=== PATIENT | male | born 1940 | race Caucasian/White ===

== ENCOUNTER 2017-12-19 06:52 | Observation (INO) | payer BC ==
[~2017-12-19] VITALS: Ht 190.5 cm; Wt 102.5 kg
--- NOTE | ~2017-12-19 | P ---
[facility] [place] [address] PROCEDURE REPORT Name: ALYSHA OLMEDO Room #: 218-P [facility] M.R.#: [id number] Admission: 12/19/17 Attend Phys: José Greenberg MD Discharge: Date of : 40 Report #: [id number] THIS REPORT FOR: //name// CC: ALCON MAHMOOD FAM unknown José Darling PREOPERATIVE DIAGNOSIS: Atrial flutter. 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 PROCEDURES PERFORMED: 1. SVT ablation, CPT code 98021. 2. EP with left atrial pacing and recording, CPT code 79777. 3. Intracardiac echo, CPT code 58180. 4. 3D mapping, CPT code 77148. 5. Mapping of the tachycardia, CPT code 10729. 6. Transseptal puncture, CPT code 62258. 7. Arterial line placement, CPT code 86038. INDICATIONS: The patient is a 77-year-old presenting with new onset atrial flutter, here for an ablation. ANESTHESIA: The patient underwent MAC anesthesia with no anesthesia related complications. PROCEDURE: The patient underwent informed consent where we discussed the details of the procedure including the risks, which include, but not limited to bleeding, vascular damage, cardiac perforation as well as stroke or OH. He understood these risks and is willing to proceed. The patient was brought to the EP laboratory in a fasting and sedated state, prepped and draped in a sterile fashion. Once sedated, I placed 3 short sheaths in the right femoral vein using the modified Seldinger technique, I placed two 7-Maltese short sheaths and an 8-Maltese short sheath. Next, under fluoroscopy, I placed a decapolar catheter into the coronary sinus and it became evident that the patient was in a left-sided atrial flutter. At baseline, the patient was in atrial flutter with a ventricular rate of 450 milliseconds and atrial rate of 300 milliseconds with a distal to proximal activation along the coronary sinus catheter. The QRS duration was 80 milliseconds and the QT interval was 300 milliseconds. I also placed a live wire halo catheter in the right atrium. We performed pacing maneuvers along the halo catheter in the right atrium as well as CS 9, 10 and CS 1, 2. All entrainment was then achieved and the PPI minus tachycardia cycle length was long from everywhere other than CS 1, 2 consistent with a left-sided mitral annular flutter. Given that it appeared we had a [facility] [address] [place] [address] PROCEDURE REPORT Name: ALYSHA OLMEDO Room #: 218-P [facility]..#: [id number] Admission: 12/19/17 Attend Phys: José Greenberg MD Discharge: Date of : 40 Report #: [id number] left-sided flutter, I decided to place a 4-Maltese short sheath in the left femoral artery for arterial monitoring of pressures and for monitoring of anticoagulation status. I then also placed a 9-Maltese short sheath in the left femoral vein and placed an ice catheter into the right atrium. Using a CARTO sound, we created a 3-D geometry of the left atrium and there was evidence of a left atrial appendage to left into right pulmonary veins. The patient was then systemically heparinized and a transseptal was then performed. I had to make three attempts to get transseptal as I was trying to get anterior along the septum in order to be able to ablate along the mitral annulus. I was then able to cross with the SL1 and Sabattus needle. I then placed a Lasso catheter into the left atrium and we created an activation map of the atrial flutter. I also performed entrainment from the 4 pulmonary veins. Entrainment from all the veins was very long at around 100 milliseconds in terms of the PPI minus tachycardia cycle length values. However, when I placed the Lasso on the mitral annulus at around 4 o'clock, the PPI minus tachycardia cycle length was 20-30 milliseconds. As such, I pulled the Lasso catheter out and I exchanged the SL1 sheath for an Agilis sheath to allow me for some better reach along the mitral annulus. Next, we started performing ablation at around 4 o'clock along the mitral annulus and I performed several drag lesions at this site and connected them to the left inferior pulmonary vein. There was no change in the tachycardia cycle length. I performed several additional ablation lines at the site and also performed some ablation at more of the 6 o'clock along the mitral annulus as well. There was still no change in the tachycardia cycle length. I then decided to attempt to ablate in the coronary sinus. Of note, the decapolar catheter would not sit in the coronary sinus very well, I had to reposition it 20 times during the case as it would easily flipped out of the CS. I therefore was able to advance my ablation catheter deep into the coronary sinus at around the 4 o'clock region and there were some sharp electrograms here. I performed several ablation lesions at the site where there were sharp atrial signals at 20 machado for approximately 20 seconds duration. There was still no termination of the tachycardia. I therefore went back into the left atrium with the ablation catheter and I mapped the mitral annulus at the exact site where I had done my chandler in the coronary sinus. I therefore was able to find some nice atrial signals with some far field ventricular signals as well and I performed ablation here and took my lesion set up to the left inferior pulmonary vein. There still was not termination, but now the tachycardia had slowed down significantly by about 80 milliseconds. I therefore looked for some additional electrograms and there were some sharp atrial signals right below the left inferior pulmonary vein. An ablation at this location resulted in termination of the atrial flutter. Pacing maneuvers were performed, suggested that there was a block across the mitral annulus. Post-ablation findings: Post-ablation, the patient was now in sinus rhythm. Atrial pacing was performed and AV block was noted at 380 milliseconds. AV cherelle ERP was noted 280 milliseconds at a [address] cycle length. We gave a double atrial extrastimuli at multiple basic drive cycle [facility] [address] [place] [address] PROCEDURE REPORT Name: ALYSHA OLMEDO Room #: 218-P [facility] M.R.#: [id number] Admission: 12/19/17 Attend Phys: José Greenberg MD Discharge: Date of : 40 Report #: [id number] lengths and could not re-induce the atrial flutter. I also performed burst pacing of the atrium all the way down to 220 milliseconds. Of note, I initially said that the atrial cycle length of the flutter was 300 milliseconds, in fact it was around 220 milliseconds and after we slowed it down, it was at around 290 milliseconds. Post-ablation, we could not re-induce the atrial flutter. The patient was in sinus rhythm with a sinus cycle length of 740 milliseconds, ND interval 200 milliseconds, QRS duration 80 milliseconds, QT interval 350 milliseconds. As such, all catheters and sheaths were pulled. Hemostasis was obtained after the patient received systemic protamine. I used intracardiac ultrasound to verify the absence of a pericardial effusion. CONCLUSIONS: 1. Successful ablation of a left-sided mitral annular flutter with evidence of block post-ablation. 2. Normal SA cherelle function. 3. Normal AV node function. 4. Normal His-Purkinje function. 5. No other inducible arrhythmias post-ablation. By: [id number] [id number] José Greenberg MD /nt
[2017-12-19 07:20] VITALS: BP 149/92
[2017-12-19 07:37] LABS: HEMATOCRIT 44.9 % (42.0-52.0); HEMOGLOBIN 15.2 gm/dL (14.0-18.0); MCHC 33.8 g/dL (28.0-37.0); MCV 100.6 fL (80.0-100.0); RBC 4.47 mil/uL (4.50-6.00); WBC 8.7 thou/uL (4.0-11.0)
[2017-12-19] MEDS ORDERED: BAYER CHEWABLE81 MG PO (07:39)
[2017-12-19] MEDS ORDERED: VITAMINC500 PO (07:39)
[2017-12-19] MEDS ORDERED: NEPHROCAPS SOFT1 CAP PO (07:40)
[2017-12-19] MEDS ORDERED: LIPITOR 20 MG T20 M1 PO (07:40)
[2017-12-19 07:41] LABS: APTT 25.9 Seconds (24.5-32.8); PROTIME 10.5 Seconds (9.3-11.4)
[2017-12-19] MEDS ORDERED: METFORMIN HCL500 MG PO (07:41)
[2017-12-19] MEDS ORDERED: VITAMIN D2000 UNIT PO (07:41)
[2017-12-19] MEDS ORDERED: TOPROL XL25 MG PO (07:42)
[2017-12-19 07:43] LABS: CALCIUM 8.7 mg/dL (8.5-10.1); POTASSIUM 4.3 mmol/L (3.5-5.1)
[2017-12-19] MEDS ORDERED: OMEGA-31000 M1 PO (07:43)
[2017-12-19] MEDS ORDERED: NITROGLYCERIN0.4 MG SUBLING (07:43)
[2017-12-19] MEDS ORDERED: XARELTO20 MG PO (07:43)
[2017-12-19] MEDS ORDERED: MICARDIS 80 MG80 MG PO (07:44)
[2017-12-19] MEDS ORDERED: THERA-M1 EAC1 PO (07:45)
[2017-12-19 08:34] LABS: ABSOLUTE NEUTROPHILS 2.2 thou/uL (1.4-8.2); ATYPICAL LYMPHS 8 %; LARGE PLATELETS FEW; PLATELET COUNT 140 thou/uL (150-400); PLATELET ESTIMATE NORMAL
[2017-12-19 15:15] VITALS: BP 133/66
[2017-12-19 19:58] VITALS: BP 124/72
[2017-12-19 23:08] LABS: HBsAG-EMPLOYEE EXPOSURE Negative (Negative); HCV AB-EMPLOYEE EXPOSURE <0.1 (0.0-0.9)
[2017-12-20 00:05] VITALS: BP 126/66
[2017-12-20 04:50] VITALS: BP 136/74
[2017-12-20 07:55] VITALS: BP 149/91
[2017-12-20 11:45] VITALS: BP 132/67
[2017-12-20 13:17] VITALS: BP 132/67
== END 2017-12-20 13:48 | disposition home or self-care (01) ==
LOC: CATH 06:52 → 2N 15:33 → ENTRNSPT 12-20 13:25 → EDTRNSPTSTS 12-20 13:40 → 2N 12-20 13:48
PROVIDERS: Internal Medicine Cardiovascular Disease
DX: I48.3 Typical atrial flutter (principal); I25.10 Atherosclerotic heart disease of native coronary artery without angina pectoris; I25.2 Old myocardial infarction; I10 Essential (primary) hypertension; E78.5 Hyperlipidemia, unspecified; Z95.5 Presence of coronary angioplasty implant and graft; Z90.49 Acquired absence of other specified parts of digestive tract; Z72.89 Other problems related to lifestyle
CPT/HCPCS: 62110; 62900; 70005

== ENCOUNTER → 2017-12-27 | Outpatient (CLI) | payer BC ==
[~2017-12-27] VITALS: Ht 190.5 cm; Wt 101.2 kg
[~2017-12-27] MED LIST: BAYER CHEWABLE81 MG PO; LIPITOR 20 MG T20 M1 PO; METFORMIN HCL500 MG PO; MICARDIS 80 MG80 MG PO; MULTAQ400 MG PO; NEPHROCAPS SOFT1 CAP PO; NITROGLYCERIN0.4 MG SUBLING; OMEGA-31000 M1 PO; THERA-M1 EAC1 PO; TOPROL XL25 MG PO; VITAMIN D2000 UNIT PO; VITAMINC500 PO; XARELTO20 MG PO
--- NOTE | ~2017-12-27 | EKG ---
[address] [place] [address] ELECTROCARDIOGRAM REPORT Name: ALYSHA OLMEDO Room #: REG CLI [facility]#: [id number] Admission: 12/27/17 Attend Phys: José Greenberg MD Discharge: Date of : 40 Report #: [id number] THIS REPORT FOR: //name// [facility] Test Date: 2017-12-27 Test Time: 09:14:07 Pat Name: ALYSHA OLMEDO Department: Room: Gender: [employer] Supervisor: Lawrence RAZO : 1940 Requested By: José Greenberg Order Number: [id number] MD: Vladimir Rashid Measurements Intervals Rew Rate: 71 P: 39 MT: 195 QRS: 47 QRSD: 88 T: -42 QT: 416 QTc: 453 Interpretive Statements Sinus rhythm Nonspecific T abnormalities No previous ECG available for comparison Electronically Signed On 12-27-2017 17:07:29 CDT by Vladimir Rashid [email or web address] <ELECTRONICALLY SIGNED> By: Vladimir Rashid MD, [facility] 12/27/17 1707 0914 3 Vladimir Rashid MD, FACC /EPI
--- NOTE | ~2017-12-27 | P ---
[facility] [place] [address] PROCEDURE REPORT Name: ALYSHA OLMEDO Room #: REG CLI Anh.#: [id number] Admission: 12/27/17 Attend Phys: José Greenberg MD Discharge: Date of : 40 Report #: [id number] THIS REPORT FOR: //name// CC: Long Greenberg DATE OF SERVICE: 01/05/2018 PREOPERATIVE DIAGNOSIS: Atrial fibrillation. POSTOPERATIVE DIAGNOSIS: Atrial fibrillation. PROCEDURE: Cardioversion. DESCRIPTION OF PROCEDURE: The patient underwent informed consent. The patient was then sedated by the anesthesiology service. The patient then underwent synchronized 200 joule cardioversion with nondenominational of sinus rhythm. There were no complications. CONCLUSIONS: Successful direct current cardioversion with nondenominational of sinus rhythm. By: [id number] 2032 José Greenberg MD /nt
[2017-12-27 07:30] LABS: HEMATOCRIT 43.8 % (42.0-52.0); HEMOGLOBIN 15.2 gm/dL (14.0-18.0); MCH 34.6 pg (26.0-34.0); MCHC 34.7 g/dL (28.0-37.0); MCV 99.8 fL (80.0-100.0); RBC 4.39 mil/uL (4.50-6.00); RDW 13.1 % (10.5-14.5); WBC 12.2 thou/uL (4.0-11.0)
[2017-12-27 07:39] LABS: CALCIUM 9.8 mg/dL (8.5-10.1); CREATININE 1.2 mg/dL (0.7-1.3); POTASSIUM 4.7 mmol/L (3.5-5.1)
[2017-12-27 07:49] LABS: APTT 38.3 Seconds (24.5-32.8); INR 1.3; PROTIME 13.4 Seconds (9.3-11.4)
[2017-12-27 07:50] VITALS: BP 153/79
== END | disposition home or self-care (01) ==
LOC: CATH 06:54
PROVIDERS: Internal Medicine Cardiovascular Disease
DX: I48.91 Unspecified atrial fibrillation (principal); I10 Essential (primary) hypertension; E78.5 Hyperlipidemia, unspecified; E11.9 Type 2 diabetes mellitus without complications; I25.2 Old myocardial infarction; I48.92 Unspecified atrial flutter; I25.10 Atherosclerotic heart disease of native coronary artery without angina pectoris; Z79.82 Long term (current) use of aspirin; Z79.899 Other long term (current) drug therapy; Z79.01 Long term (current) use of anticoagulants; Z95.5 Presence of coronary angioplasty implant and graft; Z98.890 Other specified postprocedural states
CPT/HCPCS: 62110; 62900